=== PATIENT | female | born 1965 | race Caucasian/White ===

== ENCOUNTER → 2017-12-25 | Outpatient (CLI) | payer BC ==
[2017-12-25 13:54] VITALS: BP 140/71; PULSE 86; RESP 14; TEMP 98.2
--- NOTE | 2017-12-25 14:00 | P.BASOAP ---
Subjective Progress Note Date: 12/25/17 Principal diagnosis: Morbid obesity Patient is well known to our service. Initial lap band was placed over 10-15 years ago. She is unsure how much fluid is in her band. She has had some nausea recently. She has had some chest pain and was admitted over the weekend for that. She is undergoing cardiac testing. She was diagnosed with ulcerative colitis approximately 2 months ago and those symptoms are fairly well controlled. Denies vomiting. No dysphagia. She would like to have the band emptied temporarily while she investigate these other health issues. Objective - Vital Signs Vital signs: Vital Signs Temp 98.2 F 12/25/17 13:43 Pulse 86 12/25/17 13:43 Resp 14 12/25/17 13:43 BP 140/71 12/25/17 13:43 Pulse Ox - Exam Abdomen: Soft, nontender, nondistended Assessment/Plan (1) Morbid obesity Narrative/Plan: Will into the patient's band today. Follow up when other medical issues are improved. The patient's lap band port was palpated. The site was aseptically prepped. 1% lidocaine was infiltrated into the subcutaneous tissues through a diabetic syringe. The Solorzano needle was advanced into the port. Aspiration took place. A total of 1.5 ml of fluid was evacuated. The band is now empty. Pressure was held and a sterile dressing was applied. Plan: Date: 12/25/17 Initial Weight: Initial BMI: Current Weight: Current BMI: Type of Surgery: Total Volume in Band: 0 Previous Volume: Volume Removed: 1.5 Volume Added: Band Size:
[2017-12-28 14:57] VITALS: BMI 49.8
== END | disposition home or self-care (01) ==
LOC: BARWHC3 13:25
PROVIDERS: ATTEND Surgery
DX: E66.01 Morbid (severe) obesity due to excess calories (principal); Z98.84 Bariatric surgery status
CPT/HCPCS: 99202

== ENCOUNTER → 2020-05-25 | Outpatient (CLI) | payer BC ==
--- NOTE | 2020-05-25 16:47 | P.BASOAP ---
Subjective Progress Note Date: 05/25/20 Principal diagnosis: Morbid obesity Patient returns. Last seen December 2017. She has gained 3 pounds since that time. Patient believes her band is empty. She is requesting a small fill. Patient has had recent diagnosis of ulcerative colitis and myasthenia gravis. She will be starting prednisone soon for her myasthenia. Patient also states she is not diabetic. No nausea or vomiting. No heartburn. Objective - Exam Abdomen: Soft, nontender, nondistended Assessment/Plan (1) Morbid obesity Narrative/Plan: Patient requesting a lap band adjustment. Patient believes her band is empty. The patient's lap band port was palpated. The site was aseptically prepped. The Solorzano needle was advanced into the port. A total of 0.5 ml of fluid was added for a total of 2 mL. Pressure was held and a sterile dressing was applied. Plan: Date: Initial Weight: Initial BMI: Current Weight: Current BMI: Type of Surgery: Total Volume in Band: 0 Previous Volume: Volume Removed: Volume Added: Band Size:
[2020-05-26 10:38] VITALS: BP 140/76; PULSE 86; TEMP 98.2; BMI 50.3
== END | disposition home or self-care (01) ==
LOC: BARWHC3 13:00
PROVIDERS: ATTEND Surgery
DX: E66.01 Morbid (severe) obesity due to excess calories (principal); Z98.84 Bariatric surgery status
CPT/HCPCS: 99212

== ENCOUNTER → 2020-06-15 | Outpatient (CLI) | payer BC ==
[2020-06-15 13:51] VITALS: BP 130/78; PULSE 84; RESP 16; TEMP 98.1; BMI 49.1
--- NOTE | 2020-06-15 15:04 | P.BASOAP ---
Subjective Progress Note Date: 06/15/20 Principal diagnosis: Morbid obesity Patient returns today for reevaluation. Was last seen 05/25. Patient has lost 6 pounds. Says her band feels too tight. Now having heartburn and mild dysphagia to her medications. Never did take oral prednisone. Appetite was improved. Would like her band loosened. Objective - Vital Signs Vital signs: Vital Signs Temp 98.1 F 06/15/20 13:48 Pulse 84 06/15/20 13:48 Resp 16 06/15/20 13:48 BP 130/78 06/15/20 13:48 Pulse Ox Intake & Output 06/14/20 06/15/20 06/15/20 18:59 06:59 18:59 Weight 122.016 kg - Exam Abdomen: Soft, nontender, nondistended Assessment/Plan (1) Morbid obesity Narrative/Plan: Patient would like to have her band loosened. She would like to go back to 1.5 mL. Options of meeting somewhere between 1.5 and 2 mL offered however she declines. Would consider adding a small amount of fluid if the patient desires in the future staying away from 2 mL. The patient's lap band port was palpated. The site was aseptically prepped. The Solorzano needle was advanced into the port. A total of 0.5 ml of fluid was evacuated. Current volume 1.5 mL. Pressure was held and a sterile dressing was applied. Plan: Date: 06/15/20 Initial Weight: Initial BMI: Current Weight: 122.016 kg Current BMI: 49.1 Type of Surgery: Total Volume in Band: 2.0 Previous Volume: Volume Removed: Volume Added: Band Size:
== END | disposition home or self-care (01) ==
LOC: BARWHC3 13:23
PROVIDERS: ATTEND Surgery
DX: E66.01 Morbid (severe) obesity due to excess calories (principal); Z68.42 Body mass index [BMI] 45.0-49.9, adult; R13.10 Dysphagia, unspecified; R12 Heartburn
CPT/HCPCS: 99212

== ENCOUNTER → 2024-03-04 | Outpatient (CLI) | payer BC ==
[2024-03-04 13:31] VITALS: BP 140/69; PULSE 75; RESP 16; TEMP 98.2; BMI 49.9
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
== END ==
LOC: BARWHC3 13:08
PROVIDERS: ATTEND Surgery
DX: E66.01 Morbid (severe) obesity due to excess calories (principal); Z98.84 Bariatric surgery status; Z68.42 Body mass index [BMI] 45.0-49.9, adult; Z88.0 Allergy status to penicillin
CPT/HCPCS: 99202